=== PATIENT | male | born 1990 | race Native Hawaiian/Other Pacific Islander ===

== ENCOUNTER → 2021-01-23 06:28 | Outpatient (CLI) | payer OTHER, SELFPAY ==
--- NOTE | 2021-01-23 | DI.MRI.S_ITS ---
PROCEDURE: MR KNEE LT WO CON INDICATIONS: Pain in left knee TECHNIQUE: Noncontrast sagittal PD fast spin echo and T2 fast spin echo with fat saturation, sagittal 3-D FLASH with fat saturation; coronal T1 spin echo and PD fast spin echo with fat saturation, and axial PD fast spin echo with fat saturation through the knee. COMPARISON: None. FINDINGS: Image quality: Excellent. Menisci: There is intrasubstance degeneration involving the body and posterior horn of the medial meniscus. The lateral meniscus demonstrates normal morphology and internal signal. The meniscal root ligaments appear intact. Cruciate ligaments: Patient is status post anterior cruciate ligament repair. Graft appears intact, with expected signal changes from ligamentization. No partial or full-thickness graft tears. Mild posterior bowing of the graft suggesting mild roof impingement. Femoral and tibial tunnels are in expected positions. There are tunnel cysts in tibia. The posterior cruciate ligament appears intact. Medial structures: The medial collateral ligament appears intact. The semimembranosus tendon insertions and meniscocapsular junction appear intact. Visualized portions of the pes anserinus tendons appear intact. No abnormal bursal fluid. Lateral structures: The lateral collateral ligament, long and short heads of the biceps femoris tendon appear intact. The popliteus tendon appears normal. Iliotibial band appears normal, without findings to suggest friction syndrome. Anterior structures: The quadriceps and patellar tendons appear intact. Patellar alignment is normal. No femoral trochlear dysplasia or ventral trochlear prominence. No edema in the infrapatellar fat pad. No localized arthrofibrosis (cyclops lesion) in the anterior intercondylar notch. Bones and cartilage: Sagittal images demonstrate no abnormal anterior tibial translation. No bone marrow contusions or fractures. Subchondral edema and cyst formation in the anterior aspect of the distal femoral trochlear groove. Mild tricompartmental chondral malacia. Joint space: There is small knee joint effusion. No Perez's cyst. No intra-articular bodies. Normal appearing synovial plicae are incidentally noted. IMPRESSION: 1. Postsurgical changes related to ACL repair. The ACL graft appears intact. There is mild posterior bowing suggesting mild roof impingement. Tunnel cysts are noted in the proximal tibia. 2. Intrasubstance degeneration involving the body and posterior horn of the medial meniscus. 3. Mild tricompartmental chondromalacia. 4. Small knee joint effusion. Dictated by: Pam Baron M.D. on 01/23/2021 at 9:14 Approved by: Pam Baron M.D. on 01/23/2021 at 11:09
== END ==
PROVIDERS: Referring Provider Orthopaedic Surgery; Visit Provider Orthopaedic Surgery
DX: M25.562 Pain in left knee (principal); M94.262 Chondromalacia, left knee; M25.462 Effusion, left knee
CPT/HCPCS: 73721